=== PATIENT | female | born 1985 | race Native Hawaiian/Other Pacific Islander ===

== ENCOUNTER 2016-08-27 10:01 | Emergency (ER) | payer BC ==
[2016-08-27 10:34] VITALS: BP 109/86
--- NOTE | 2016-08-27 10:43 | UC ---
Throat Pain/Nasal Tommy HPI - HPI Summary HPI Summary: started feeling sick 08/14/16 sore throat for approx 5 days then nasal congestion and cough started cough that is worse at night having coughing fits coughing up large amounts of phlegm still has nasal congestion denies headaches, sinus pressure, ear pain,sore throat at this time denies fever but has had chills the first week has been taking ibuprofen , organic cough syrup , cold and flu OTC medication with some relief - History of Current Complaint Chief Complaint: UCRespiratory Stated Complaint: COUGH Hx Obtained From: Patient Hx Last Menstrual Period: 08/10/16 - Allergies/Home Medications Allergies/Adverse Reactions: Allergies Allergy/AdvReac Type Severity Reaction Status Date / Time No Known Allergies Allergy Verified 08/27/16 10:29 Home Medications: Home Medications Iron Supplement 1 tab PO DAILY 08/27/16 [History] [place]-3 Fatty Acids [Fish Oil] 1,000 mg PO DAILY 08/27/16 [History Confirmed 12/08] PMH/Surg Hx/FS Hx/Imm Hx Previously Healthy: Yes - Surgical History Surgical History: Yes Surgery Procedure, Year, and Place: ectopic - Family History Known Family History: Negative: Cardiac Disease, Hypertension, Diabetes - Social History Occupation: Employed Full-time Lives: With Family Alcohol Use: Occasionally Substance Use Type: None Smoking Status (MU): Never Smoked Tobacco Review of Systems Constitutional: Chills Skin: Negative Eyes: Negative ENT: Sore Throat, Nasal Discharge Respiratory: Cough Cardiovascular: Negative Gastrointestinal: Negative Genitourinary: Negative Motor: Negative Neurovascular: Negative Musculoskeletal: Negative Neurological: Negative Psychological: Negative All Other Systems Reviewed And Are Negative: Yes Physical Exam Triage Information Reviewed: Yes Appearance: No Pain Distress, Well-Nourished Vital Signs: Initial Vital Signs Temp 99.4 F 08/27/16 10:22 Pulse 66 08/27/16 10:22 Resp 14 08/27/16 10:22 BP 109/86 08/27/16 10:22 Pulse Ox 100 08/27/16 10:22 Vital Signs Reviewed: Yes Eyes: Positive: Conjunctiva Clear ENT: Positive: Pharynx normal, Nasal congestion, Nasal drainage, TMs normal. Negative: TM red Neck: Positive: No Lymphadenopathy Respiratory: Positive: No respiratory distress, No accessory muscle use, Rhonchi , Stridor - RLL - rhochi wheezing clear to ascultation in other [place] Cardiovascular: Positive: RRR, No Murmur, Pulses Normal Abdomen Description: Positive: Nontender, Soft Bowel Sounds: Positive: Present Musculoskeletal: Positive: No Edema Neurological: Positive: Alert Psychological Exam: Normal Skin Exam: Normal Throat Pain/Nasal Course/Dx - Course Course Of Treatment: exam completed. rhonchi /wheezing RLL. will treat for pneumonia secondary to pharyngitis/URI - Differential Dx/Diagnosis Differential Diagnosis/HQI/PQRI: Sinusitis, URI, Other - bronchitis Provider Diagnoses: pneumonia Discharge - Discharge Plan Condition: Stable Disposition: HOME Prescriptions: Albuterol HFA INHALER* [Ventolin HFA Inhaler*] 2 puff INH Q4H PRN #1 mdi PRN Reason: Wheezing Azithromycin TAB* [Zithromax TAB (Z-CHEYANNE)*] 0 mg PO .Z-CHEYANNE INSTRUCTIONS #6 tab Spacer/Aerosol-Holding Chamber [Aerochamber Mv] 1 mis XX Q4HR #1 mis Patient Education Materials: Pneumonia (ED) Referrals: Prabhakar Funez MD [Primary Care Provider] - Additional Instructions: start antibiotic as directed Use your albuterol inhaler every 4-6 hours when needed for wheezing, shortness of breath or uncontrolled coughing. Increase fluids and rest Take acetaminophen or ibuprofen for fever or pain Please review your discharge instructions. If your symptoms do not improve please call your primary care provider or return to urgent care.
== END 2016-08-27 11:13 | disposition home or self-care (01) ==
LOC: UCEAST 10:01
DX: J18.9 Pneumonia, unspecified organism (principal)
CPT/HCPCS: 99212; G0463

== ENCOUNTER 2018-05-25 10:22 | Emergency (ER) | payer BC ==
--- NOTE | 2018-05-25 11:04 | UC ---
Skin Complaint HPI - HPI Summary HPI Summary: 33-year-old male here with a complaint of a wound on his right lower leg. This happened about 2 weeks ago he got stuck with a THISTLE. He's been keeping it clean and putting triple antibiotic ointment on it and it's not improving it's actually getting a little bit worse. There is some surrounding redness is no drainage. He did not see a foreign body in the wound initially. No fevers or chills feels well otherwise. - History of Current Complaint Chief Complaint: UCGeneralIllness Time Seen by Provider: 05/25/18 10:58 Stated Complaint: AND DEHYDRATED Hx Last Menstrual Period: 08/10/16 Pain Intensity: 0 - Allergy/Home Medications Allergies/Adverse Reactions: Allergies Allergy/AdvReac Type Severity Reaction Status Date / Time No Known Allergies Allergy Verified 05/25/18 10:41 Home Medications: Home Medications NK [No Home Medications Reported] 05/25/18 [History Confirmed 05/25/18] Review of Systems Constitutional: Negative Skin: Other - SEE HPI Eyes: Negative ENT: Negative Respiratory: Negative Cardiovascular: Negative Gastrointestinal: Negative Motor: Negative Neurovascular: Negative Musculoskeletal: Negative Neurological: Negative Psychological: Negative Is Patient Immunocompromised?: No All Other Systems Reviewed And Are Negative: Yes PMH/Surg Hx/FS Hx/Imm Hx Cardiovascular History: Cardiac Disease - Surgical History Surgical History: Yes Surgery Procedure, Year, and Place: ectopic - 2007 - Family History Known Family History: Negative: Cardiac Disease, Hypertension, Diabetes - Social History Alcohol Use: Occasionally Substance Use Type: None Smoking Status (MU): Never Smoked Tobacco Physical Exam Triage Information Reviewed: Yes Appearance: Well-Appearing, No Pain Distress, Well-Nourished Vital Signs: Initial Vital Signs Temp 98.7 F 05/25/18 10:42 Pulse 74 05/25/18 10:42 Resp 16 05/25/18 10:42 BP 93/56 05/25/18 10:42 Pulse Ox 99 05/25/18 10:42 Eye Exam: Normal Eyes: Positive: Conjunctiva Clear Neck exam: Normal Neck: Positive: Supple Respiratory: Positive: No respiratory distress Musculoskeletal Exam: Normal Musculoskeletal: Positive: Strength Intact, ROM Intact, No Edema Neurological Exam: Normal Neurological: Positive: Alert Psychological Exam: Normal Psychological: Positive: Age Appropriate Behavior Skin: Positive: Other - On the lower right leg there is a firm 3 mm area of it' s mildly tender to palpation. There is no obvious foreign body seen in this area. There is a surrounding rim of erythema approximately 2 cm in diameter. There is no drainage there is no streaking. Course/Dx - Course Course Of Treatment: I did not see a foreign body in the wound. The plan is to treat with Bactrim by mouth just in case there is MRSA and topical mupirocin. He is to stop the triple antibiotic just in case he is having a reaction to neomycin. Follow-up will be with dermatology if not improved or worsening. - Diagnoses Provider Diagnoses: RIGHT LEG CELLULITIS Discharge - Sign-Out/Discharge Documenting (check all that apply): Patient Departure All imaging exams completed and their final reports reviewed: No Studies - Discharge Plan Condition: Stable Disposition: HOME Patient Education Materials: Cellulitis (ED) Referrals: Prabhakar Funez MD [Primary Care Provider] - Kenyon Diamond MD [Medical Doctor] - Additional Instructions: FOLLOW UP WITH DERMATOLOGY IF NOT COMPLETELY IMPROVED. GET RECHECKED FOR ANY WORSENING OF YOUR CONDITION OR QUESTIONS OR CONCERNS. - Billing Disposition and Condition Condition: STABLE Disposition: Home
[2018-05-25] MEDS ORDERED: NS 0.9% 1000 ML* 2,000 ML IV ONE (11:13)
[2018-05-25] MEDS ORDERED: Metoclopramide IV* 5 MG/ML 2 ML VIAL IV SLOW PU ONE (11:14)
--- NOTE | 2018-05-25 11:43 | UC ---
Nausea/Vomiting/Diarrhea HPI - HPI Summary HPI Summary: 33-year-old woman who is 5 weeks comes in with nausea and vomiting. This started today. She basically has it everyday of her . She had it with her prior . - History of Current Complaint Chief Complaint: UCGeneralIllness Stated Complaint: AND DEHYDRATED Time Seen by Provider: 05/25/18 10:58 Hx Last Menstrual Period: 08/10/16 Pain Intensity: 0 - Allergies/Home Medications Allergies/Adverse Reactions: Allergies Allergy/AdvReac Type Severity Reaction Status Date / Time No Known Allergies Allergy Verified 05/25/18 10:41 PMH/Surg Hx/FS Hx/Imm Hx - Additional Past Medical History Additional PMH: Hyperemesis gravidarum - Surgical History Surgical History: Yes Surgery Procedure, Year, and Place: ectopic - 2007 - Family History Known Family History: Negative: Cardiac Disease, Hypertension, Diabetes - Social History Alcohol Use: Occasionally Substance Use Type: None Smoking Status (MU): Never Smoked Tobacco Review of Systems Constitutional: Negative Skin: Negative Eyes: Negative ENT: Negative Respiratory: Negative Cardiovascular: Negative Gastrointestinal: Vomiting, Nausea Genitourinary: Negative Motor: Negative Neurovascular: Negative Musculoskeletal: Negative Neurological: Negative Psychological: Negative Is Patient Immunocompromised?: No All Other Systems Reviewed And Are Negative: Yes Physical Exam Triage Information Reviewed: Yes Appearance: No Pain Distress, Well-Nourished, Ill-Appearing - MILD Vital Signs: Initial Vital Signs Temp 98.7 F 05/25/18 10:42 Pulse 74 05/25/18 10:42 Resp 16 05/25/18 10:42 BP 93/56 05/25/18 10:42 Pulse Ox 99 05/25/18 10:42 Vital Signs Reviewed: Yes Eye Exam: Normal ENT: Positive: Other - Oral mucosa dry Neck exam: Normal Neck: Positive: Supple Respiratory: Positive: Lungs clear, Normal breath sounds, No respiratory distress Cardiovascular: Positive: RRR Abdomen Description: Positive: Nontender, Soft Bowel Sounds: Positive: Present Musculoskeletal Exam: Normal Musculoskeletal: Positive: Strength Intact, ROM Intact Neurological Exam: Normal Neurological: Positive: Alert Psychological Exam: Normal Psychological: Positive: Normal Response To Family, Age Appropriate Behavior Skin Exam: Normal Naus/Vom/Diarrhea Course/Dx - Course Course Of Treatment: Improved in clinic after 2 L of normal saline and Reglan 10 mg IV. Plan is to follow up with [facility]. - Differential Dx/Diagnosis Provider Diagnoses: HYPEREMESIS GRAVIDARUM Condition At Discharge: Stable Discharge - Sign-Out/Discharge Documenting (check all that apply): Patient Departure All imaging exams completed and their final reports reviewed: No Studies - Discharge Plan Condition: Stable Disposition: HOME Prescriptions: Metoclopramide TAB* [Reglan TAB*] 10 mg PO Q6H PRN #10 tab PRN Reason: Nausea Patient Education Materials: Hyperemesis Gravidarum (ED) Referrals: Prabhakar Funez MD [Primary Care Provider] - Additional Instructions: FOLLOW UP WITH YOUR OBGYN. GET RECHECKED FOR ANY WORSENING OF YOUR CONDITION OR QUESTIONS OR CONCERNS. - Billing Disposition and Condition Condition: STABLE Disposition: Home
[2018-05-25 12:50] VITALS: BP 100/53
== END 2018-05-25 14:35 | disposition home or self-care (01) ==
LOC: UCEAST 10:22
DX: O21.0 Mild hyperemesis gravidarum (principal); Z3A.01 Less than 8 weeks gestation of pregnancy
CPT/HCPCS: 96360; 96374; 99212; G0463; J2765

== ENCOUNTER 2018-06-07 10:26 | Emergency (ER) | payer BC ==
[2018-06-07] MEDS ORDERED: Metoclopramide IV* 5 MG/ML 2 ML VIAL IV SLOW PU ONE (12:16)
--- NOTE | 2018-06-07 12:16 | UC ---
Nausea/Vomiting/Diarrhea HPI - HPI Summary HPI Summary: 33-year-old woman who is in her first trimester of who has been vomiting for the last couple of weeks. She's been seen here couple weeks ago and she was treated with IV fluids and Reglan which did help for a while. She didn't taking the Reglan at home and is not working as well. She followed up with [facility] with Dr. Prince and has been prescribed DICLEGIS. The prescription is pending based on insurance issues .Patient has upper abdominal pain that. No fevers or chills . No vaginal discharge. - History of Current Complaint Chief Complaint: UCGI Stated Complaint: VOMITING WHILE Time Seen by Provider: 06/07/18 12:04 Hx Last Menstrual Period: 08/10/16 Pain Intensity: 0 - Allergies/Home Medications Allergies/Adverse Reactions: Allergies Allergy/AdvReac Type Severity Reaction Status Date / Time No Known Allergies Allergy Verified 06/07/18 10:51 PMH/Surg Hx/FS Hx/Imm Hx Previously Healthy: Yes - Surgical History Surgical History: Yes Surgery Procedure, Year, and Place: ectopic - 2007 - Family History Known Family History: Negative: Cardiac Disease, Hypertension, Diabetes - Social History Alcohol Use: None Substance Use Type: None Smoking Status (MU): Never Smoked Tobacco Review of Systems Constitutional: Negative Skin: Negative Eyes: Negative ENT: Other - DRY MOUTH Respiratory: Negative Cardiovascular: Negative Gastrointestinal: Vomiting, Other - SEE HPI Genitourinary: Negative Motor: Negative Neurovascular: Negative Musculoskeletal: Negative Neurological: Negative Psychological: Negative Is Patient Immunocompromised?: No All Other Systems Reviewed And Are Negative: Yes Physical Exam Triage Information Reviewed: Yes Appearance: No Pain Distress, Well-Nourished, Ill-Appearing - MILD Vital Signs: Initial Vital Signs Temp 99.0 F 06/07/18 10:48 Pulse 74 06/07/18 10:48 Resp 18 06/07/18 10:48 BP 94/58 06/07/18 10:48 Pulse Ox 99 06/07/18 10:48 Vital Signs Reviewed: Yes Eye Exam: Normal Eyes: Positive: Conjunctiva Clear ENT: Positive: Other - ORAL MUCOSA DRY Neck: Positive: Supple, Nontender Respiratory: Positive: Lungs clear, Normal breath sounds, No respiratory distress Cardiovascular: Positive: RRR Abdomen Description: Positive: Nontender, Soft Musculoskeletal Exam: Normal Musculoskeletal: Positive: Strength Intact, ROM Intact Neurological Exam: Normal Neurological: Positive: Alert, Muscle Tone Normal Psychological Exam: Normal Psychological: Positive: Age Appropriate Behavior Skin Exam: Normal Naus/Vom/Diarrhea Course/Dx - Course Course Of Treatment: Improved in clinic with normal saline 2 L IV and also Reglan 10 mg IV. Plan is to follow up with [facility]. He checked sooner if worse. - Differential Dx/Diagnosis Provider Diagnoses: HYPER EMESIS GRAVIDARUM. DEHYDRATION Discharge - Sign-Out/Discharge Documenting (check all that apply): Patient Departure All imaging exams completed and their final reports reviewed: No Studies - Discharge Plan Condition: Stable Disposition: HOME Patient Education Materials: Hyperemesis Gravidarum (ED), Dehydration (ED) Referrals: Prabhakar Funez MD [Primary Care Provider] - Tenisha Prince MD [Medical Doctor] - Additional Instructions: FOLLOW UP WITH YOUR OBGYN. GET RECHECKED FOR ANY WORSENING OF YOUR CONDITION OR QUESTIONS OR CONCERNS. - Billing Disposition and Condition Condition: STABLE Disposition: Home
[2018-06-07] MEDS: NS 0.9% 1000 ML* 2,000 ML IV ONE ×2 (12:35→13:18)
[2018-06-07 14:34] VITALS: BP 90/51
== END 2018-06-07 15:02 | disposition home or self-care (01) ==
LOC: UCEAST 10:26
DX: O21.0 Mild hyperemesis gravidarum (principal); Z3A.00 Weeks of gestation of pregnancy not specified; E86.0 Dehydration
CPT/HCPCS: 96360; 96361; 96374; 99211; G0463; J2765

== ENCOUNTER 2018-08-19 12:30 | Emergency (ER) | payer BC ==
[2018-08-19 12:59] VITALS: BP 100/63
--- NOTE | 2018-08-19 13:48 | UC ---
Throat Pain/Nasal Tommy HPI - HPI Summary HPI Summary: Pt presents with sore throat progessive 4 days. and daughter with same. no strep exposure Pt (18 weeks) so has not used OTC products. no fever, chills No cp, sob, no ear pain. mild sinus congestion Pt concerned strep. + eating drinking no n/v/d/ no rash medications reviewed this visit - History of Current Complaint Chief Complaint: UCGeneralIllness Stated Complaint: SORE THROAT Time Seen by Provider: 08/19/18 13:34 Hx Obtained From: Patient Hx Last Menstrual Period: 08/10/16 ?: Yes - 18 weeks Onset/Duration: Gradual Onset Pain Intensity: 7 - Allergies/Home Medications Allergies/Adverse Reactions: Allergies Allergy/AdvReac Type Severity Reaction Status Date / Time No Known Allergies Allergy Verified 08/19/18 12:59 Home Medications: Home Medications Doxylamine/Pyridoxine(NF) [Diclegis (NF)] 1 tab PO DAILY 08/19/18 [History Confirmed 08/19/18] PMH/Surg Hx/FS Hx/Imm Hx Previously Healthy: Yes - Surgical History Surgical History: Yes Surgery Procedure, Year, and Place: ectopic - 2007 - Family History Known Family History: Positive: Non-Contributory Negative: Cardiac Disease, Hypertension, Diabetes - Social History Lives: With Family Alcohol Use: None Substance Use Type: None Smoking Status (MU): Never Smoked Tobacco Review of Systems All Other Systems Reviewed And Are Negative: Yes Constitutional: Positive: Fatigue ENT: Positive: Sore Throat, Other - post nasal congestion Physical Exam - Summary Physical Exam Summary: Vital Signs Reviewed: Yes A+Ox3, no distress, laryngitis Eyes: Conjunctiva Clear, JOSEFA. EOM intact and full ENT: Hearing grossly normal TM x 2 clear, mmoist, uvula midline, no exudate, + diffuse erythema no drooling, handling secretions Neck: Positive: Supple, no LA Respiratory: Positive: No respiratory distress, No accessory muscle use + CTA throughout no w/r Cardiovascular: RRR nl s1, s2 no m/r CBT <2 sec abd soft + BS nt/nd no guarding, no distension Musculoskeletal Exam: SENA x 4 without difficulty Strength Intact, ROM Intact Neurological: Positive: Alert, + sensation throughout Psychological: Positive: Normal Response To Family Skin: Positive: no rash, no ecchymosis Triage Information Reviewed: Yes Vital Signs: Initial Vital Signs Temp 98.7 F 08/19/18 12:57 Pulse 86 08/19/18 12:57 Resp 16 08/19/18 12:57 BP 100/63 08/19/18 12:57 Pulse Ox 99 08/19/18 12:57 Throat Pain/Nasal Course/Dx - Course Course Of Treatment: Pt presents with 4 days sore throat, layngitis. pt is y mild PND n other sx family with same. Pt with neg strep. pt tried viscous lidocaine - did not like taste. encourage gargle spit. secretion precaution. cold fluids. throat lozengers. return precautions - Differential Dx/Diagnosis Provider Diagnosis: Pharyngitis Discharge - Sign-Out/Discharge Documenting (check all that apply): Patient Departure All imaging exams completed and their final reports reviewed: No Studies - Discharge Plan Condition: Stable Disposition: HOME Patient Education Materials: Pharyngitis (ED), Upper Respiratory Infection (ED) Referrals: Prabhakar Funez MD [Primary Care Provider] - Additional Instructions: - Okay to take Tylenol every 6 hours for pain. Take with food. Do NOT take for more than 4-5 days - Okay to gargle and spit warm salt water every 4 hours as needed for pain - Stay well hydrated - frequent sips of cold fluids will be soothing to your throat (popsicles, jello, ice cream, ice water). Avoid excess caffeine until your symptoms have resolved. -Throat infections are spread by oral secretions - do not share eating or drinking utensils until you symptoms are resolved. Clean items that may get your secretions such as cell phones, ipads, computer mouse, television remotes. Once you start to feel better, change your toothbrush and your pillowcase. - humidify the air in the room where you sleep - boil water, run a hot steam shower, vaporizer, cups of water by heat register - Contact your doctor to arrange a follow-up appointment as needed - increased pain, fever, sinus pain, ear pain or other concerns - Billing Disposition and Condition Condition: STABLE Disposition: Home
[2018-08-19] MEDS ORDERED: Lidocaine 2% VISCOUS* 15 ML UDC SWISH SPIT ONE (13:59)
== END 2018-08-19 14:25 | disposition home or self-care (01) ==
LOC: UCEAST 12:30
DX: J02.9 Acute pharyngitis, unspecified (principal)
CPT/HCPCS: 87651; 99212; G0463

== ENCOUNTER 2019-01-01 07:45 | Inpatient (IN) | payer BC ==
--- NOTE | 2019-01-01 08:11 | HP ---
General Information - Reason for Visit IUP at 38-08/30 in labor - General Information Maternal Age: 33 Grav: 3 Para: 1 SAB: 1 IEA: 0 Estimated Due Date: 01/14/19 Determined By: Early Ultrasound - 9 weeks Maternal Blood Type and Rh: O Positive - Results this Serology/RPR Result: Non-Reactive Rubella Result: Immune HBsAg Result: Negative HIV Result: Negative GBS Culture Result: Negative Past Medical History Delivery History: Hx Uncomplicated Vaginal Delivery Delivery History Comment: 2006 ectopic 11/2013 7lbs male. Delivered at [facility] [place] by Candi Mathias CNM Pertinent Past Medical History: Non-Contributory Pertinent Past Surgical History: See Records Past Surgical History Comment: 2006 Laparotomy, ectopic [place] tooth extraction Pertinent Family History: See Records Family History Comment: Father: Prostate cancer PGF: Diabetes, prostate cancer. , CVA MGF: , unknown - Antepartal Records Antepartal Records: Reviewed, Uncomplicated Review of Systems Constitutional: Uncomfortable - with [facility] CV Complaint: No Respiratory: Shortness of Breath: No Gastrointestinal: No Nausea/Vomiting, Normal Bowel Movement Genitourinary: Leaking Fluid - ? at 0400, No Dysuria, No Bleeding Musculoskeletal: Contractions Neurological: No Headache, No Visual Changes Movement: Normal Exam Allergies/Adverse Reactions: Allergies No Known Allergies Allergy (Verified 08/19/18 12:59) BP 106/73 HR 76 RR 20 - Measurements Height: 5 ft 1 in Weight: 126 lb Body Mass Index (BMI): 23.8 Pre- Weight: 97 lb - Exam Breast: Breast Exam Deferred CVA: No CVA Tenderness Extremities: No Edema Heart: Normal Rhythm/Heart Sounds HEENT: No Significant Findings Lungs: Clear Bilaterally Rectal: Rectal Exam Deferred Reflexes: DTR 2+ Thyroid: No Thyromegaly - Abdominal Exam Abdomen Exam: Non-Tender, Fundal Height Consistent with Dates - Ultrasound/Biophysical Profile Ultrasound Status: Not Done Targeted Exam Findings See L&D Outpatient Visit Provider Note for Findings: N/A Estimated Weight: EFW 7lbs by Cuauhtemoc Cervical Exam: 5cm Effacement: 100% Membrane Status: Bulging Sterile Speculum Exam: Not done Bleeding/Discharge: None EFM Findings - External Monitor Findings Baseline Heart Rate: 140 External Monitor Findings: No Pattern of Variable or Late Decelerations, Variability Moderate, Baseline Stable External Monitor Findings Comment: No evidence of metabolic acidemia Contractions: Regular, Moderate, Strong Contraction Frequency: q 2-3 min Assessment/Plan - Assessment IUP at 38-1/7 in active labor No evidence of metabolic acidemia - Plan Plan: Admit - Anticipate Vaginal Delivery - Date/Time of Admission Date of Admission: 01/01/19 Time of Admission: 07:59
--- NOTE | 2019-01-01 09:35 | PN ---
Progress Note - Progress Note Date of Service: 01/01/19 Note: S: Called to bedside by RN. Uncomfortable with contractions, but coping. at bedside, supportive. O: FHR: 140, moderate variability Ctx: q2-3 minutes VE: 7/100/-1, intact A: IUP@38+1, In active labor, making appropriate cervical change No evidence of metabolic acidemia Regular contractions P: VE prn Anticipate progression to
[2019-01-01] MEDS ORDERED: Acetaminophen TAB* 325 MG PO PRN (10:38)
[2019-01-01] MEDS ORDERED: Dibucaine 1% 28.35 GM TUBE PR PRN (10:38)
[2019-01-01] MEDS ORDERED: Glycerin ADULT SUPP PR PRN (10:38)
[2019-01-01] MEDS ORDERED: Witch Hazel PAD* JAR TOPICAL PRN (10:38)
[2019-01-01] MEDS ORDERED: Lactated Ringers 1000 ML Bag* 1,000 ML IV SCH (11:00)
[2019-01-01] MEDS ORDERED: Simethicone TAB* 80 MG TAB.CHEW PO SCH (12:30)
--- NOTE | 2019-01-01 12:37 | PROCNOTE ---
[facility] OB: Delivery Note - Delivery A Date of : 01/01/19 Time of : 09:56 [place] Sex: Female Weight at : 8 lb 3 oz Score 1 Minute: 7 Score 5 Minutes: 9 Gestational Age in Weeks and Days at Delivery: 38 Weeks and 1 Days Delivery Method: Spontaneous Vaginal Labor: Spontaneous Did Patient attempt ?: N/A, No Previous Amniotic Fluid: Clear Estimated Blood Loss: 100 Anesthesia/Analgesia: None Delivered By: Suzie Mitchell - Nursery Level of Nursery: Regular/Bedside - Perineum Perineal Injury: 2nd Degree Perineal Repair: By Delivering Practioner - repaired with 3-0 vicryl under local anesthesia (1%), pt tolerated well - Events Delivery Events of Note: None Apply - Risk for Falls Other Risk for Falls: none - Additional Delivery Notes Additional Delivery Notes: 33 yo at 38+1 weeks admitted fin active labor. AROM clear fluid at 0939. Progressed to complete and complete. Pt began pushing spontaneously at 0952. Crowned to delivery of liveborn female infant at 0956, OA to KACI. Pt flipped from hands and knees to back with head out, shoulders followed easily. Terminal meconium noted. to mother's chest, dried and stimulated with spontaneous cry. 's 7' 9. Delayed cord clamping, followed by cut by FOB. Spontaneous reynaldo delivery of intact placenta at 1003. Fundus firm, bleeding minimal. EBL 100mL. After careful inspection a second degree perineal laceration was identified and repaired in the usual fashion by Kristel Mitchell CNM. Normal anatomy restored, hemostasis achieved. Infant breast feeding. Mother and in stable condition at time of note.
[2019-01-01] MEDS ORDERED: OXYTOCIN* 10 UNITS/ML 1 ML VIAL IM ONE (12:40)
[2019-01-01] MEDS: Ibuprofen TAB* 600 MG PO PRN ×2 (13:15→20:55)
[2019-01-01] MEDS: Docusate CAP* 100 MG PO SCH ×2 (13:15→20:56)
[2019-01-02 08:44] LABS: ABS Basophils 0.1 10^3/ul (0-0.2); ABS Monocytes 0.8 10^3/ul (0-0.8); ABS Neutrophils 10.9 10^3/ul (1.5-7.7); Eosinophil % 0.3 %; Hematocrit 38 % (35-47); Hemoglobin 12.2 g/dL (12.0-16.0); Lymphocyte % 14.4 %; Mean Corpuscular HGB Conc 32 g/dL (31-36); Mean Corpuscular Hemoglobin 28 pg (27-31); Mean Corpuscular Volume 87 fL (80-97); Mean Platelet Volume 7.6 fL (7.4-10.4); Platelet Count 278 10^3/uL (150-450); Red Blood Count 4.35 10^6 /uL (3.70-4.87); Red Cell Distribution Width 15 % (10.5-15); White Blood Count 13.8 10^3/uL (3.5-10.8)
[2019-01-02] MEDS ORDERED: Ferrous Gluconate TAB* 324 MG TAB PO SCH (09:00)
[2019-01-02] MEDS: Docusate CAP* 100 MG PO SCH (09:10)
[2019-01-02] MEDS: Ibuprofen TAB* 600 MG PO PRN (09:10)
[2019-01-02 09:50] VITALS: BP 98/74
== END 2019-01-02 15:40 | disposition home or self-care (01) | DRG 560 ==
LOC: MCHOBOUT 07:45 → MCHOB 07:59
PROVIDERS: ADMIT Advanced Practice Midwife; ATTEND Advanced Practice Midwife
PROC: 10E0XZZ Delivery of Products of Conception, External Approach (ICD-10-PCS; principal; 2019-01-01)
PROC: 10907ZC Drainage of Amniotic Fluid, Therapeutic from Products of Conception, Via Natural or Artificial Opening (ICD-10-PCS; 2019-01-01)
PROC: 0KQM0ZZ Repair Perineum Muscle, Open Approach (ICD-10-PCS; 2019-01-01)
DX: O42.02 Full-term premature rupture of membranes, onset of labor within 24 hours of rupture (principal); Z37.0 Single live birth; O70.1 Second degree perineal laceration during delivery; O77.0 Labor and delivery complicated by meconium in amniotic fluid; Z3A.38 38 weeks gestation of pregnancy
CPT/HCPCS: 36415; 85025; A9270-GY